=== PATIENT | male | born 1990 | race Caucasian/White ===

== ENCOUNTER 2025-03-04 09:00 | Emergency (ER) | payer OTHER, SELFPAY ==
[2025-03-04] VITALS (31 sets, daily range): BP systolic 97–132; BP diastolic 52–73; PULSE 49–84; RESP 12–23; TEMP 36.6; O2SAT 94–100; BMI 28.7
--- NOTE | 2025-03-04 09:11 | DI.CT.S_ITS ---
PROCEDURE: CT ABDOMEN PELVIS W CON INDICATIONS: severe lower back pain with diffuse abd pain + rebound/guard TECHNIQUE: After the administration of intravenous contrast, axial sections acquired from the lung bases to the pubic symphysis. Coronal and sagittal reformats were performed. For radiation dose reduction, the following was used: automated exposure control, adjustment of mA and/or kV according to patient size. COMPARISON: None. FINDINGS: Image quality: Diagnostic. Lower Chest: No significant findings. ABDOMEN: Liver: No solid mass. Gallbladder: No radiopaque gallstones or wall thickening. Incidental note made of for again cap. Biliary ducts: No biliary dilation. Pancreas: No ductal dilation. Spleen: Size is within normal limits. Adrenal Glands: No adrenal nodules. Kidneys and Ureters: No hydronephrosis. No solid mass. No complex renal cystic lesion which requires follow up. Stomach and Bowel: Normal colonic caliber, without significant wall thickening. Normal appendix. Peritoneum: No abnormal intraperitoneal fluid. No free air. Ventral Wall: No significant ventral hernia. Abdominal Nodes: No retroperitoneal or mesenteric adenopathy by size criteria. Vessels: Aorta and inferior vena cava are normal in size. PELVIS: Pelvic Organs: Unremarkable. Bladder: No bladder wall thickening, accounting for underdistention. Pelvic Nodes: No enlarged lymph nodes. Miscellaneous: No inguinal hernias are seen. Bones: No aggressive osseous abnormality. There is a ertq-lu-esrcvodf broad- based posterior disc protrusion at L4-L5 with indentation on the thecal sac. It is of uncertain clinical significance. Reference sagittal image 61 of series 5 and axial image 92 of series 2. IMPRESSION: 1. No acute abdominal process noted. Normal appendix identified. 2. A pvxs-pd-kzrlqzvn broad-based posterior disc protrusion at L4-L5 is of uncertain clinical significance. Dictated by: Quinten Naylor M.D. on 03/04/2025 at 10:21 Approved by: Quinten Naylor M.D. on 03/04/2025 at 10:30
[2025-03-04] MEDS: KETOROLAC 30 MG/ML VIAL 15 MG IV (09:14)
--- NOTE | 2025-03-04 09:48 | ED.BACK ---
HPI - Back Pain/Injury <Lynnette Stephenson MD - Last Filed: 03/07/25 15:09> General Chief Complaint: Back Pain/Injury Stated Complaint: Back Injury Time Seen by Provider: 03/04/25 09:00 Source: patient and EMS History of Present Illness HPI Narrative: 34-year-old young man no significant medical history was at the gym this morning was doing squats and with 350 lb, he was able to go down in a deep squat felt a ?popping sensation? in his lower back/abdomen and he has been in severe pain since. Medics were called. He has had only oral Tylenol prior to arrival. He has never had injuries or pain like this. He notes that he has significant pain in the right flank and abdomen with left leg pain. Having the leg slightly externally rotated and flexed seems to help. On initial exam he is having far too much pain to fully assess for weakness. Notes that his left leg has less sensation than his right and also complains that his toes are cold with slight decreased sensation which is very unusual for him Related Data Allergies Allergy/AdvReac Type Severity Reaction Status Date / Time No Known Drug Allergies Allergy Verified 03/04/25 09:08 Review of Systems <Lynnette Stephenson MD - Last Filed: 03/07/25 15:09> Review of Systems Narrative: Pertinent positive and negative findings as per HPI Patient History <Lynnette Stephenson MD - Last Filed: 03/07/25 15:09> Social History Smoking Status: Never smoker Smoking Status: Never smoker Exam <Lynnette Stephenson MD - Last Filed: 03/07/25 15:09> Initial Vital Signs Initial Vital Signs: Vital Signs Blood Pressure 115/57 L 03/04/25 09:04 General: In severe pain, diaphoretic, able to respond with yes and no to direct questioning HEENT: Moist mucous membranes, normal sclera with reactive pupils, Respiratory: Lungs are clear to auscultation, no wheezing no rales no rhonchi. Full and symmetrical air movement Cardiac: Regular rate and rhythm Abdomen: Soft, guarding throughout the entire abdomen. Right flank pain. Spine: Initially far too much pain to have him roll. He does have tenderness with pelvic ring manipulation Skin: Pale and diaphoretic Neurologic: No obvious paresthesias in the lower extremities. Initially unable to test strength due to pain we will need further evaluation Extremities: No trauma, well perfused Psych: Cooperative, appropriate insight and affect Neurologic re-evaluation: Left lower extremity with decreased sensation in a stocking distribution from the thigh to the toes. Still has brisk reflexes at patellas and ankles bilaterally. Bounding dorsalis pedis pulses bilaterally Still significant pain position of comfort is left leg slightly flexed and externally rotated. Significant low back spasm No perineal paresthesia, <Dina Roach DO - Last Filed: 03/04/25 22:24> Initial Vital Signs Initial Vital Signs: Vital Signs Blood Pressure 115/57 L 03/04/25 09:04 Course <Lynnette Stephenson MD - Last Filed: 03/07/25 15:09> Orders Ordered: Discontinued Medications Dexamethasone (Dexamethasone 10 Mg/Ml Vial) 10 mg IV NOW ONE Stop: 03/04/25 16:42 Last Admin: 03/04/25 16:51 Dose: 10 mg Documented By: OMAR Hydromorphone HCl (Hydromorphone Hcl 0.5 Mg/0.5 Ml Syringe) 0.5 mg IV Q15MIN PRN PRN Reason: Pain, Last Admin: 03/04/25 22:28 Dose: 0.5 mg Documented By: Admin: 03/04/25 20:29 Dose: 0.5 mg Documented By: Admin: 03/04/25 14:03 Dose: 0.5 mg Documented By: Admin: 03/04/25 09:41 Dose: 0.5 mg Documented By: Admin: 03/04/25 09:14 Dose: 0.5 mg Documented By: SOHAIL(2) Hydromorphone HCl (Hydromorphone 1 Mg/Ml Syringe) 1 mg IV NOW ONE Stop: 03/04/25 16:41 Last Admin: 03/04/25 16:51 Dose: 1 mg Documented By: OMAR Hydromorphone HCl (Hydromorphone 1 Mg/Ml Syringe) 1 mg IV NOW ONE Stop: 03/04/25 16:42 Last Admin: 03/04/25 18:56 Dose: 1 mg Documented By: SOHAIL Sodium Chloride (Normal Saline 0.9%) 1,000 mls @ 1,000 mls/hr IV BOLUS ONE Stop: 03/04/25 17:39 Last Infusion: 03/04/25 18:57 Dose: Infused Documented By: Admin: 03/04/25 16:50 Dose: 1,000 mls/hr Documented By: OMAR Sodium Chloride (Normal Saline 0.9%) 1,000 mls @ 150 mls/hr IV CONT NICHO Last Admin: 03/04/25 19:04 Dose: 150 mls/hr Documented By: SOHAIL Ketorolac Tromethamine (Ketorolac 30 Mg/Ml Vial) 15 mg IV NOW ONE Stop: 03/04/25 09:11 Last Admin: 03/04/25 09:14 Dose: 15 mg Documented By: SOHAIL(2) Oxycodone HCl (Oxycodone Ir 5 Mg Tablet) 5 mg PO NOW ONE Stop: 03/04/25 11:55 Last Admin: 03/04/25 12:03 Dose: 5 mg Documented By: SOHAIL(2) Oxycodone/Acetaminophen (Oxycodone/Acetaminophen 5/325 Tablet) 1 tab PO NOW ONE Stop: 03/04/25 11:05 Last Admin: 03/04/25 11:45 Dose: 1 tab Documented By: SOHAIL Vital Signs Vital signs: Vital Signs - 8 hr 03/04/25 14:56 03/04/25 15:00 03/04/25 15:30 Pulse Rate 57 L 53 L 55 L Respiratory Rate Blood Pressure Pulse Oximetry 96 96 96 Oxygen Delivery Method 03/04/25 16:00 03/04/25 16:30 03/04/25 17:00 Pulse Rate 50 L 52 L 51 L Respiratory Rate Blood Pressure Pulse Oximetry 98 98 97 Oxygen Delivery Method 03/04/25 17:30 03/04/25 18:00 03/04/25 18:30 Pulse Rate 57 L 60 62 Respiratory Rate Blood Pressure Pulse Oximetry 96 97 97 Oxygen Delivery Method 03/04/25 19:00 03/04/25 19:04 03/04/25 19:04 Pulse Rate 63 66 Respiratory Rate 18 Blood Pressure 129/73 Pulse Oximetry 97 99 Oxygen Delivery Method 03/04/25 19:30 03/04/25 19:30 Pulse Rate 84 Respiratory Rate 13 Blood Pressure 132/66 Pulse Oximetry 96 Oxygen Delivery Method Room Air <Dina Roach, - Last Filed: 10/24/25 22:24> Orders Ordered: Discontinued Medications Dexamethasone (Dexamethasone 10 Mg/Ml Vial) 10 mg IV NOW ONE Stop: 03/04/25 16:42 Last Admin: 03/04/25 16:51 Dose: 10 mg Documented By: OMAR Hydromorphone HCl (Hydromorphone Hcl 0.5 Mg/0.5 Ml Syringe) 0.5 mg IV Q15MIN PRN PRN Reason: Pain, Last Admin: 03/04/25 22:28 Dose: 0.5 mg Documented By: Admin: 03/04/25 20:29 Dose: 0.5 mg Documented By: Admin: 03/04/25 14:03 Dose: 0.5 mg Documented By: Admin: 03/04/25 09:41 Dose: 0.5 mg Documented By: Admin: 03/04/25 09:14 Dose: 0.5 mg Documented By: SOHAIL(2) Hydromorphone HCl (Hydromorphone 1 Mg/Ml Syringe) 1 mg IV NOW ONE Stop: 03/04/25 16:41 Last Admin: 03/04/25 16:51 Dose: 1 mg Documented By: OMAR Hydromorphone HCl (Hydromorphone 1 Mg/Ml Syringe) 1 mg IV NOW ONE Stop: 03/04/25 16:42 Last Admin: 03/04/25 18:56 Dose: 1 mg Documented By: SOHAIL Sodium Chloride (Normal Saline 0.9%) 1,000 mls @ 1,000 mls/hr IV BOLUS ONE Stop: 03/04/25 17:39 Last Infusion: 03/04/25 18:57 Dose: Infused Documented By: Admin: 03/04/25 16:50 Dose: 1,000 mls/hr Documented By: OMAR Sodium Chloride (Normal Saline 0.9%) 1,000 mls @ 150 mls/hr IV CONT NICHO Last Admin: 03/04/25 19:04 Dose: 150 mls/hr Documented By: SOHAIL Ketorolac Tromethamine (Ketorolac 30 Mg/Ml Vial) 15 mg IV NOW ONE Stop: 03/04/25 09:11 Last Admin: 03/04/25 09:14 Dose: 15 mg Documented By: SOHAIL(2) Oxycodone HCl (Oxycodone Ir 5 Mg Tablet) 5 mg PO NOW ONE Stop: 03/04/25 11:55 Last Admin: 03/04/25 12:03 Dose: 5 mg Documented By: SOHAIL(2) Oxycodone/Acetaminophen (Oxycodone/Acetaminophen 5/325 Tablet) 1 tab PO NOW ONE Stop: 03/04/25 11:05 Last Admin: 03/04/25 11:45 Dose: 1 tab Documented By: SOHAIL Vital Signs Vital signs: Vital Signs - 8 hr 03/04/25 14:56 03/04/25 15:00 03/04/25 15:30 Pulse Rate 57 L 53 L 55 L Respiratory Rate Blood Pressure Pulse Oximetry 96 96 96 Oxygen Delivery Method 03/04/25 16:00 03/04/25 16:30 03/04/25 17:00 Pulse Rate 50 L 52 L 51 L Respiratory Rate Blood Pressure Pulse Oximetry 98 98 97 Oxygen Delivery Method 03/04/25 17:30 03/04/25 18:00 03/04/25 18:30 Pulse Rate 57 L 60 62 Respiratory Rate Blood Pressure Pulse Oximetry 96 97 97 Oxygen Delivery Method 03/04/25 19:00 03/04/25 19:04 03/04/25 19:04 Pulse Rate 63 66 Respiratory Rate 18 Blood Pressure 129/73 Pulse Oximetry 97 99 Oxygen Delivery Method 03/04/25 19:30 03/04/25 19:30 Pulse Rate 84 Respiratory Rate 13 Blood Pressure 132/66 Pulse Oximetry 96 Oxygen Delivery Method Room Air MDM - Back Pain/Injury <Lynnette Stephenson MD - Last Filed: 03/07/25 15:09> Imaging Data CT scan - abdomen/pelvis: Radiologist's Impression: PROCEDURE: CT ABDOMEN PELVIS W CON INDICATIONS: severe lower back pain with diffuse abd pain + rebound/guard TECHNIQUE: After the administration of intravenous contrast, axial sections acquired from the lung bases to the pubic symphysis. Coronal and sagittal reformats were performed. For radiation dose reduction, the following was used: automated exposure control, adjustment of mA and/or kV according to patient size. COMPARISON: None. FINDINGS: Image quality: Diagnostic. Lower Chest: No significant findings. ABDOMEN: Liver: No solid mass. Gallbladder: No radiopaque gallstones or wall thickening. Incidental note made of for again cap. Biliary ducts: No biliary dilation. Pancreas: No ductal dilation. Spleen: Size is within normal limits. Adrenal Glands: No adrenal nodules. Kidneys and Ureters: No hydronephrosis. No solid mass. No complex renal cystic lesion which requires follow up. Stomach and Bowel: Normal colonic caliber, without significant wall thickening. Normal appendix. Peritoneum: No abnormal intraperitoneal fluid. No free air. Ventral Wall: No significant ventral hernia. Abdominal Nodes: No retroperitoneal or mesenteric adenopathy by size criteria. Vessels: Aorta and inferior vena cava are normal in size. PELVIS: Pelvic Organs: Unremarkable. Bladder: No bladder wall thickening, accounting for underdistention. Pelvic Nodes: No enlarged lymph nodes. Miscellaneous: No inguinal hernias are seen. Bones: No aggressive osseous abnormality. There is a ykfn-hp-jwlvgevm broad-based posterior disc protrusion at L4-L5 with indentation on the thecal sac. It is of uncertain clinical significance. Reference sagittal image 61 of series 5 and axial image 92 of series 2. IMPRESSION: 1. No acute abdominal process noted. Normal appendix identified. 2. A fohn-kz-jhygbabi broad-based posterior disc protrusion at L4-L5 is of uncertain clinical significance. Dictated by: Quinten Naylor M.D. on 03/04/2025 at 10:21 MDM Narrative Medical decision making narrative: CC: Severe back pain/abdominal Complicating co-morbidities: None Data collected from: patient, medic Differential considered: Acute back strain, ruptured intervertebral disc, compression fracture vertebra, retroperitoneal bleeding, kidney stone, hernia Exam documented above, pertinent findings include: Severe pain to the point of being pale and diaphoretic with near vomiting. Concern with guarding throughout his abdomen, inability to move his legs secondary to the severity of pain and inability to move him a room to further examine spine Imaging studies independently reviewed: L4-L5: Acute central to left subarticular disc protrusion which measures 13 x 7 x 27 mm (11/18; 09/05) with mild inferior migration. This results in moderate to severe left lateral recess and moderate right lateral recess stenosis abutting the lateralizing bilateral L5 nerve roots. Additional mild spinal canal stenosis due to the disc protrusion. Mild left neural foraminal stenosis due to subarticular extension of the protrusion. No right neural foraminal stenosis.. Consultations: Films have been sent to [facility]. 445pm, will discuss with Neurosurgery Treatments: Patient took Tylenol prior to arrival, on arrival was given Toradol and IV Dilaudid. Has had a total of point 5 mg of Dilaudid x3, 10 mg of oxycodone and still is not having appropriate pain control. We will try a mg of Dilaudid and repeat it rather quickly to see if we can get on top of his pain, 2 this will add 10 mg of dexamethasone. Re-evaluations: With the initial evaluation, the severity of pain is concerning particularly in a rather stoic individual as described by his . The acute pain while weight lifting with written 50 lb suggest musculoskeletal abnormalities but hernia is also within the differential. He has entire belly is initially tender appreciate obvious hernias. 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 He has had problems with his back before the did respond to physical therapy. He currently is not having any saddle paresthesia but his entire left leg is numb, both feet are cold and the tips of his toes bilaterally are decreased in overall sensation. Good palpable pulses to the lower extremities. And been unable to adequately control his pain, we will increase Dilaudid and add dexamethasone. Findings reviewed with the patient. We will await recommendations from Neurosurgery. 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 Pt updated on plans, attempts for improved pain control and change of doctors. <Dina Roach, DO - Last Filed: 03/04/25 22:24> [facility] Narrative Medical decision making narrative: CC: Severe back pain/abdominal Complicating co-morbidities: None Data collected from: patient, medic Differential considered: Acute back strain, ruptured intervertebral disc, compression fracture vertebra, retroperitoneal bleeding, kidney stone, hernia Exam documented above, pertinent findings include: Severe pain to the point of being pale and diaphoretic with near vomiting. Concern with guarding throughout his abdomen, inability to move his legs secondary to the severity of pain and inability to move him a room to further examine spine Imaging studies independently reviewed: L4-L5: Acute central to left subarticular disc protrusion which measures 13 x 7 x 27 mm (7; 09/05) with mild inferior migration. This results in moderate to severe left lateral recess and moderate right lateral recess stenosis abutting the lateralizing bilateral L5 nerve roots. Additional mild spinal canal stenosis due to the disc protrusion. Mild left neural foraminal stenosis due to subarticular extension of the protrusion. No right neural foraminal stenosis.. Consultations: Films have been sent to [facility]. 445pm, will discuss with Neurosurgery Treatments: Patient took Tylenol prior to arrival, on arrival was given Toradol and IV Dilaudid. Has had a total of point 5 mg of Dilaudid x3, 10 mg of oxycodone and still is not having appropriate pain control. We will try a mg of Dilaudid and repeat it rather quickly to see if we can get on top of his pain, 2 this will add 10 mg of dexamethasone. Re-evaluations: With the initial evaluation, the severity of pain is concerning particularly in a rather stoic individual as described by his . The acute pain while weight lifting with written 50 lb suggest musculoskeletal abnormalities but hernia is also within the differential. He has entire belly is initially tender appreciate obvious hernias. 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 He has had problems with his back before the did respond to physical therapy. He currently is not having any saddle paresthesia but his entire left leg is numb, both feet are cold and the tips of his toes bilaterally are decreased in overall sensation. Good palpable pulses to the lower extremities. And been unable to adequately control his pain, we will increase Dilaudid and add dexamethasone. Findings reviewed with the patient. We will await recommendations from Neurosurgery. 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 Pt updated on plans, attempts for improved pain control and change of doctors. Call for spinal surgery pending, called back. Dr. Norris in OR. Patient is seen and evaluated by myself. Does have strength intact on exam but quite a bit of pain. DTRs decreased bilaterally. Patient has not urinated in 9 hours in department. He has no sensation that he needs to urinate. Bladder scan was performed and he is retaining about 600 mL. He denies any saddle anesthesia. He has had multiple doses of IV pain medications he is more comfortable lying flat currently but it is still quite painful unable to get up roll around the bed or move. Patient has multiple doses of IV pain medication including Dilaudid, oral pain medication with oxycodone, ketorolac and received fluids. Awaiting call back [facility], Dr. Norris with spinal surgery is in OR. Recontacted and updated patient has urinary retention with no sensation/need to urinate, >600mL out with catheter when placed. Spoke with Dr. Mai Santos Emergency Department @ [facility] accepts for transfer to [facility] ED. Discharge Plan Departure Patient Disposition: [facility] Clinical Impression: Protrusion of lumbar intervertebral disc, Left leg paresthesias, Acute urinary retention
--- NOTE | 2025-03-04 10:08 | PC.NURSE ---
Bilateral lower extremities CMS intact - bilateral pedal pulse 76 bpm
--- NOTE | 2025-03-04 11:53 | DI.MRI.S_ITS ---
PROCEDURE: MR LUMBAR SPINE WO CON INDICATIONS: acute L leg paresthesia/pain, weight lifing/squat 350lbs TECHNIQUE: Noncontrast sagittal T1 spin echo and T2 fast echo, sagittal STIR, and T2 fast spin echo through the lumbar spine. In cases with scoliosis, additional coronal T2 fast spin echo may be performed. COMPARISON: None. FINDINGS: Image quality: Excellent. Alignment and Curvature: There is normal bony alignment. Bone Marrow: Marrow is of normal overall signal. No acute vertebral body compression fractures. Spinal Cord: Conus medullaris terminates at the L1 level. Visualized cord demonstrates normal signal and size. Paraspinous Soft Tissues: No paravertebral masses. T12-L1: Normal appearance. L1-L2: Normal appearance. L2-L3: Normal appearance. L3-L4: Normal appearance. L4-L5: Acute central to left subarticular disc protrusion which measures 13 x 7 x 27 mm (7/10; 09/05) with mild inferior migration. This results in moderate to severe left lateral recess and moderate right lateral recess stenosis abutting the lateralizing bilateral L5 nerve roots. Additional mild spinal canal stenosis due to the disc protrusion. Mild left neural foraminal stenosis due to subarticular extension of the protrusion. No right neural foraminal stenosis.. L5-S1: Normal appearance. IMPRESSION: L4-5 central to left subarticular disc protrusion results in bilateral, left greater than right, lateral recess stenosis abutting the bilateral L5 nerve roots. Dictated by: Ray Urban M.D. on 03/04/2025 at 14:53 Approved by: Ray Urban M.D. on 03/04/2025 at 15:00
[2025-03-04] MEDS: SODIUM CHLORIDE 0.9% 1,000 ML 1000 ML IV (16:50)
[2025-03-04] MEDS: SODIUM CHLORIDE 0.9% 1,000 ML 150 ML IV (19:04)
--- NOTE | 2025-03-04 19:19 | PC.NURSE ---
Pt able to stand with 1 person assist. Attempted to urinate, unable. Given 1 ml Dilaudid post void attempt.
--- NOTE | 2025-03-04 19:45 | PC.NURSE ---
Pt lying in ED stretcher resting with eyes closed, resps even and not labored. No distress noted at this time. Pt rouses easily with verbal stimuli and engages appropriately with RN. Pt reports continued pain in lower back radiating to bilat hips and legs. Pt states right hip and leg pain is worse, left leg and hip numbness is greater. Pain increases with movement. Circulation and motor to distal lower extremities intact and pt able to move legs against force. Indwelling urinary catheter placed at this time per provider order without difficulty, currently draining clear yellow urine. Pt tolerated well. Continued plan of care discussed with patient. Pt remains connected to cardiac, resp, blood pressure, and pulse ox monitors with alarms on and audible. Call light within reach. No other complaints or requests at this time.
== END 2025-03-04 22:46 | disposition short-term general hospital (02) ==
PROVIDERS: Emergency Provider Emergency Medicine
DX: M51.26 Other intervertebral disc displacement, lumbar region (principal); R20.2 Paresthesia of skin; R33.8 Other retention of urine
CPT/HCPCS: 36415; 51798; 72148; 74177; 96361; 96374; 96375; 96376; 99284; J1100; J1171; J1885; J7030; Q9967